=== PATIENT | female | born 1965 ===

== ENCOUNTER 2024-04-10 17:18 | Outpatient (CLI) | payer OTHER, SELFPAY | END 2024-04-10 17:19 | disposition home or self-care (01) | LOC: AMB 04-21 08:00 | PROVIDERS: Visit Provider Family Medicine | DX: T14.90XA Injury, unspecified, initial encounter (principal); R42 Dizziness and giddiness; V53.5XXA Driver of pick-up truck or van injured in collision with car, pick-up truck or van in traffic accident, initial encounter; Y92.410 Unspecified street and highway as the place of occurrence of the external cause | CPT/HCPCS: A0998 ==

== ENCOUNTER 2024-07-19 00:46 | Outpatient (CLI) | payer OTHER, SELFPAY | END 2024-07-19 00:47 | disposition home or self-care (01) | LOC: AMB 07-22 10:11 | PROVIDERS: Visit Provider Family Medicine | DX: R50.9 Fever, unspecified (principal); R06.02 Shortness of breath | CPT/HCPCS: A0998 ==